=== PATIENT | male | born 1980 | race Caucasian/White ===

== ENCOUNTER 2020-01-08 17:26 | Emergency (ER) | payer BC ==
--- NOTE | 2020-01-08 17:34 | ERPHSYRPT ---
- History of Present Illness Time Seen by Provider: 01/08/20 17:33 Historian: patient Exam Limitations: no limitations Physician History: This is a 39-year-old white male who is on no medication as has no drug allergies and presents with right flank pain with radiation to the right groin. The pain began last night. Patient has also noticed decreased urine output. Patient has not taken any medication for this. He is never had anything like these symptoms in the past. He has no dysuria. And he is noticed no hematuria. Timing/Duration: yesterday Quality: aching Abdominal Pain Onset Location: flank (Right) Pain Radiation: groin (Right) Severity of Pain-Max: moderate Severity of Pain-Current: mild Modifying Factors: Improves With: nothing Associated Symptoms: other (Difficulty urinating) Previous symptoms: no prior history Allergies/Adverse Reactions: No Known Drug Allergies Allergy (Unverified 01/08/20 17:53) Travel Risk - International Travel Have you traveled outside of the country in past 3 weeks: No Have you or anyone close to you been diagnosed with or: No Do your reside in a community with a known COVID-19 case?: Yes If Yes where:: [facility] - Coronavirus Screening Has patient experienced Coronavirus symptoms: No - Review of Systems Constitutional: No Symptoms Eyes: No Symptoms Ears, Nose, & Throat: No Symptoms Respiratory: No Symptoms Cardiac: No Symptoms Abdominal/Gastrointestinal: No Symptoms Genitourinary Symptoms: No Symptoms Musculoskeletal: No Symptoms Skin: No Symptoms Neurological: No Symptoms Psychological: No Symptoms Endocrine: No Symptoms Hematologic/Lymphatic: No Symptoms Immunological/Allergic: No Symptoms All Other Systems: Reviewed and Negative - Past Medical History Pertinent Past Medical History: No Neurological History: No Pertinent History ENT History: No Pertinent History Cardiac History: No Pertinent History Respiratory History: No Pertinent History Endocrine Medical History: No Pertinent History Musculoskeletal History: No Pertinent History GI Medical History: No Pertinent History History: No Pertinent History Psycho-Social History: No Pertinent History Male Reproductive Disorders: No Pertinent History - Past Surgical History Past Surgical History: No Neuro Surgical History: No Pertinent History Cardiac: No Pertinent History Respiratory: No Pertinent History Gastrointestinal: No Pertinent History Genitourinary: No Pertinent History Musculoskeletal: No Pertinent History Male Surgical History: No Pertinent History - Social History Smoking Status: Never smoker Exposure to second hand smoke: No - Nursing Vital Signs Nursing Vital Signs: Initial Vital Signs Pulse Rate 98 H 05/02/20 17:47 Respiratory Rate 17 01/08/20 17:47 Blood Pressure 145/97 01/08/20 17:47 O2 Sat by Pulse Oximetry 97 01/08/20 17:47 Pain Scale Pain Intensity 5 - Physical Exam General Appearance: mild distress, alert, anxiety Eye Exam: PERRL/EOMI, eyes nml inspection Ears, Nose, Throat Exam: normal ENT inspection, moist mucous membranes Neck Exam: normal inspection, non-tender, supple, full range of motion Respiratory Exam: normal breath sounds, lungs clear, airway intact, No chest tenderness, No respiratory distress Cardiovascular Exam: regular rate/rhythm, normal heart sounds, normal peripheral pulses Gastrointestinal/Abdomen Exam: soft, normal bowel sounds, No tenderness, No guarding Back Exam: normal inspection, normal range of motion, CVA tenderness, No vertebral tenderness Extremity Exam: normal inspection, normal range of motion, pelvis stable Neurologic Exam: alert, oriented x 3, cooperative, 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 ( Right), normal mood/affect, nml cerebellar function, nml station & gait, sensation nml Skin Exam: normal color, warm, dry Lymphatic Exam: No adenopathy SpO2 Interpretation: normal O2 Delivery: Room Air Ordered Tests: Active Orders 24 hr Category Date Time Status IV Insertion STAT Care 01/08/20 17:58 Active ABDOMEN AND PELVIS W/0 CONTRAS [CT] Stat Exams 01/08/20 18:02 Taken AMYLASE Stat Lab 01/08/20 18:25 Completed CBC W DIFF Stat Lab 01/08/20 18:25 Completed CMP Stat Lab 01/08/20 18:25 Completed LIPASE Stat Lab 01/08/20 18:25 Completed Lactic Acid Stat Lab 01/08/20 18:13 Completed UA W/RFX UR CULTURE Stat Lab 01/08/20 18:25 Completed Medication Summary Discontinued Medications Generic Name Dose Route Start Last Admin Trade Name Freq PRN Reason Stop Dose Admin Hydromorphone HCl 1 mg 01/08/20 19:15 Hydromorphone 1 Mg/Ml Ampule IV 01/08/20 19:16 STAT ONE Sodium Chloride 1,000 mls @ 999 mls/hr 01/08/20 17:58 01/08/20 18:17 Sodium Chloride 0.9% 1000 Ml IV 01/08/20 18:58 999 mls/hr .Q1H1M STA Administration Sodium Chloride Confirm 01/08/20 18:14 Sodium Chloride 0.9% 1000 Ml Administered 01/08/20 18:15 Dose 1,000 mls @ ud .ROUTE .STK-MED ONE Ketorolac Tromethamine 30 mg 01/08/20 17:58 01/08/20 18:18 Toradol 30 Mg Injection IV 01/08/20 17:59 30 mg STAT ONE Administration Ketorolac Tromethamine Confirm 01/08/20 18:14 Toradol 30 Mg Injection Administered 01/08/20 18:15 Dose 30 mg .ROUTE .STK-MED ONE Ondansetron HCl 4 mg 01/08/20 17:58 01/08/20 18:18 Zofran 4 Mg/2 Ml Vial IV 01/08/20 17:59 4 mg STAT ONE Administration Ondansetron HCl Confirm 01/08/20 18:14 Zofran 4 Mg/2 Ml Vial Administered 01/08/20 18:15 Dose 4 mg .ROUTE .STK-MED ONE Lab/Rad Data: Laboratory Result Diagrams 01/08/20 18:25 01/08/20 18:25 Laboratory Results 01/08/20 01/08/20 01/08/20 Range/Units 18:25 18:25 18:25 WBC 15.1 H (4.0-10.5) K/mm3 RBC 5.26 (4.1-5.6) M/mm3 Hgb 16.7 (12.5-18.0) gm/dl Hct 47.0 (42-50) % MCV 89.4 (78-100) fl MCH 31.7 (26-32) pg MCHC 35.5 (32-36) g/dl RDW 12.9 (11.5-14.0) % Plt Count 203 (150-450) K/mm3 MPV 10.7 (7.5-11.0) fl Gran % 82.6 H (36.0-66.0) % Eos # (Auto) 0.01 (0-0.5) Absolute Lymphs (auto) 1.19 (1.0-4.6) Absolute Monos (auto) 1.40 H (0.0-1.3) Lymphocytes % 7.9 L (24.0-44.0) % Monocytes % 9.3 (0.0-12.0) % Eosinophils % 0.1 (0.00-5.0) % Basophils % 0.1 (0.0-0.4) % Absolute Granulocytes 12.47 H (1.4-6.9) Basophils # 0.01 (0-0.4) Sodium 141 (137-145) mmol/L Potassium 3.5 (3.5-5.1) mmol/L Chloride 105 (98-107) mmol/L Carbon Dioxide 27 (22-30) mmol/L Anion Gap 13.2 (5-15) MEQ/L BUN 18 (9-20) mg/dL Creatinine 1.44 H (0.66-1.25) mg/dL Estimated GFR 58.0 ML/MIN Glucose 125 H (74-106) mg/dL Lactic Acid (0.4-2.0) Calcium 9.7 (8.4-10.2) mg/dL Total Bilirubin 1.30 (0.2-1.3) mg/dL AST 34 (17-59) U/L ALT 52 H (0-50) U/L Alkaline Phosphatase 71 (38-126) U/L Serum Total Protein 8.2 (6.3-8.2) g/dL Albumin 4.7 (3.5-5.0) g/dL Amylase 47 (30-110) U/L Lipase 37 (23-300) U/L Urine Color YELLOW (YELLOW) Urine Appearance CLEAR (CLEAR) Urine pH 6.0 (5-6) Ur Specific [place] 1.029 (1.005-1.025) Urine Protein 30 (Negative) Urine Ketones TRACE (NEGATIVE) Urine Blood SMALL (0-5) Pan/ul Urine Nitrite NEGATIVE (NEGATIVE) Urine Bilirubin NEGATIVE (NEGATIVE) Urine Urobilinogen NEGATIVE (0-1) mg/dL Ur Leukocyte Esterase NEGATIVE (NEGATIVE) Urine WBC (Auto) 0-2 (0-5) /HPF Urine RBC (Auto) 3-5 (0-2) /HPF U Epithel Cells (Auto) NONE (FEW) /HPF Urine Bacteria (Auto) NONE SEEN (NEGATIVE) /HPF Urine Mucus (Auto) SLIGHT (NEGATIVE) /HPF Urine Culture Reflexed NO (NO) Urine Glucose 50 (NEGATIVE) mg/dL 01/08/20 Range/Units 18:13 WBC (4.0-10.5) K/mm3 RBC (4.1-5.6) M/mm3 Hgb (12.5-18.0) gm/dl Hct (42-50) % MCV (78-100) fl MCH (26-32) pg MCHC (32-36) g/dl RDW (11.5-14.0) % Plt Count (150-450) K/mm3 MPV (7.5-11.0) fl Gran % (36.0-66.0) % Eos # (Auto) (0-0.5) Absolute Lymphs (auto) (1.0-4.6) Absolute Monos (auto) (0.0-1.3) Lymphocytes % (24.0-44.0) % Monocytes % (0.0-12.0) % Eosinophils % (0.00-5.0) % Basophils % (0.0-0.4) % Absolute Granulocytes (1.4-6.9) Basophils # (0-0.4) Sodium (137-145) mmol/L Potassium (3.5-5.1) mmol/L Chloride (98-107) mmol/L Carbon Dioxide (22-30) mmol/L Anion Gap (5-15) MEQ/L BUN (9-20) mg/dL Creatinine (0.66-1.25) mg/dL Estimated GFR ML/MIN Glucose (74-106) mg/dL Lactic Acid 1.3 (0.4-2.0) Calcium (8.4-10.2) mg/dL Total Bilirubin (0.2-1.3) mg/dL AST (17-59) U/L ALT (0-50) U/L Alkaline Phosphatase (38-126) U/L Serum Total Protein (6.3-8.2) g/dL Albumin (3.5-5.0) g/dL Amylase (30-110) U/L Lipase (23-300) U/L Urine Color (YELLOW) Urine Appearance (CLEAR) Urine pH (5-6) Ur Specific [place] (1.005-1.025) Urine Protein (Negative) Urine Ketones (NEGATIVE) Urine Blood (0-5) Pan/ul Urine Nitrite (NEGATIVE) Urine Bilirubin (NEGATIVE) Urine Urobilinogen (0-1) mg/dL Ur Leukocyte Esterase (NEGATIVE) Urine WBC (Auto) (0-5) /HPF Urine RBC (Auto) (0-2) /HPF U Epithel Cells (Auto) (FEW) /HPF Urine Bacteria (Auto) (NEGATIVE) /HPF Urine Mucus (Auto) (NEGATIVE) /HPF Urine Culture Reflexed (NO) Urine Glucose (NEGATIVE) mg/dL - Progress Progress: improved, re-examined Progress Note: 01/08/20 19:17 CAT scan of the abdomen and pelvis reveals a 2 mm obstructing stone in the distal right ureter at the ureterovesical junction with mild hydronephrosis. Counseled pt/family regarding: lab results, diagnosis, need for follow-up, rad results - Departure Departure Disposition: Home Clinical Impression: Right ureteral calculus Condition: Stable Critical Care Time: No Additional Instructions: Plenty of fluids. Ibuprofen 600 mg orally 3 times a day with food. Follow-up with your primary care physician for persistent symptoms. Return to the emergency department if your symptoms worsen. Prescriptions: Hydrocodone/APAP 5-325 Tab^^^ [[place] 5-325 Tablet^^^] 1 tab PO Q8H PRN PRN #6 tablet MDD 3 PRN Reason: Pain Tamsulosin HCl 0.4 mg [Flomax 0.4 MG] 0.4 mg PO DAILY #7 cap
[2020-01-08] MEDS ORDERED: Sodium Chloride 0.9% 1000 ML 1,000 ML IV STA (17:58)
[2020-01-08] MEDS ORDERED: Zofran 4 MG/2 ML VIAL IV ONE (17:58)
[2020-01-08] MEDS ORDERED: TORAdol 30 mg Injection IV ONE (17:58)
[2020-01-08] MEDS ORDERED: Zofran 4 MG/2 ML VIAL ONE (18:14)
[2020-01-08] MEDS ORDERED: Sodium Chloride 0.9% 1000 ML 1,000 ML ONE (18:14)
[2020-01-08] MEDS ORDERED: TORAdol 30 mg Injection ONE (18:14)
[2020-01-08 18:29] LABS: Absolute Neutrophil Ct (ANC) 12.47 (1.4-6.9); BASOPHIL % 0.1 % (0.0-0.4); Basophil (Absolute #) 0.01 (0-0.4); Eosinophil % 0.1 % (0.00-5.0); Eosinophil (Absolute #) 0.01 (0-0.5); Hemoglobin 16.7 gm/dl (12.5-18.0); Lymphocyte (Absolute #) 1.19 (1.0-4.6); Lymphocytes % 7.9 % (24.0-44.0); Mean Cell Volume 89.4 fl (78-100); Mean Corpuscular Hemoglobin 31.7 pg (26-32); Mean Corpuscular Hgb Concent. 35.5 g/dl (32-36); Mean Platelet Volume 10.7 fl (7.5-11.0); Monocytes % 9.3 % (0.0-12.0); Neutrophil % 82.6 % (36.0-66.0); Platelet Count 203 K/mm3 (150-450); Red Blood Count 5.26 M/mm3 (4.1-5.6); Red Cell Distribution Width 12.9 % (11.5-14.0); White Blood Count 15.1 K/mm3 (4.0-10.5)
[2020-01-08 18:40] LABS: Appearance CLEAR (CLEAR); Bilirubin NEGATIVE (NEGATIVE); Blood SMALL Ery/ul (0-5); Glucose 50 mg/dL (NEGATIVE); Ketones TRACE (NEGATIVE); Leukocyte Esterase NEGATIVE (NEGATIVE); Mucus SLIGHT /HPF (NEGATIVE); Nitrite NEGATIVE (NEGATIVE); Protein,Urine Dip 30 (Negative); Specific Gravity 1.029 (1.005-1.025); Urobilinogen NEGATIVE mg/dL (0-1); WBC 0-2 /HPF (0-5)
[2020-01-08 18:41] LABS: Bacteria NONE SEEN /HPF (NEGATIVE)
[2020-01-08 18:46] LABS: ALBUMIN 4.7 g/dL (3.5-5.0); ANION GAP 13.2 MEQ/L (5-15); BILIRUBIN,TOTAL 1.3 mg/dL (0.2-1.3); Calcium 9.7 mg/dL (8.4-10.2); Creatinine 1 1.44 mg/dL (0.66-1.25); Potassium 3.5 mmol/L (3.5-5.1); Total Protein 8.2 g/dL (6.3-8.2)
[2020-01-08 18:56] VITALS: O2SAT 100
[2020-01-08] MEDS ORDERED: Hydromorphone 1 mg/ml Ampule IV ONE (19:15)
[2020-01-08 19:25] VITALS: BP 130/74; PULSE 93
[2020-01-08] MEDS ORDERED: Hydromorphone 1 mg/ml Ampule ONE (19:25)
--- NOTE | 2020-01-09 07:47 | XRAY ---
Indication: Right abdomen pain. Nausea and vomiting. Multiple contiguous axial images obtained through the abdomen and pelvis without contrast as ordered. Comparison: None Lung bases are clear of infiltrate and effusion. Heart is not enlarged. Noncontrasted stomach and bowel loops appear nonobstructed. Normal appendix. There is a 2-3 mm right UVJ calculus with right ureter slightly prominent and mild hydronephrosis favoring partial obstruction. Left kidney demonstrates nonobstructing punctate calculus. No free fluid/air. 8-9 mm gallstone. Remaining liver, gallbladder, pancreas, spleen, adrenal glands, kidneys, ureters, bladder, and ureters appear unremarkable for noncontrast exam. Osseous structures intact. Impression: 1. 2-3 mm right UVJ calculus producing partial obstruction. Additional left renal microcalculus. 2. Cholelithiasis. Gallbladder sonogram may yield further information. 3. Remaining CT abdomen/pelvis without contrast exam is negative. Comment: Preliminary interpretation was made by [facility]. No critical discrepancy.
== END 2020-01-08 19:40 | disposition home or self-care (01) ==
LOC: ED 17:26
DX: N13.2 Hydronephrosis with renal and ureteral calculous obstruction (principal)
CPT/HCPCS: 36000; 36415; 74176; 80053; 81001; 82150; 83605; 83690; 85025; 96374; 96375; 99284; J1170; J1885; J2405